=== PATIENT | male | born 1960 | race Caucasian/White ===

== ENCOUNTER 2018-06-03 11:13 | Inpatient (IN) | payer SELFPAY ==
--- NOTE | 2018-06-03 11:23 | ED PDOC ---
Arrival/HPI - General Chief Complaint: Chest Pain Time Seen by Provider: 06/03/18 11:19 - History of Present Illness Narrative History of Present Illness (Text): 06/03/18 11:25 A 57 year old male, whose past medical history includes atrial fibrillation, hy pertension and diabetes type 2, presents to the emergency department complaining of central chest pain starting at 10:00. Patient describes pain as burning sensation. NKDA. No history of CVA. No other complaints at this time. code Heart called since patient arrival. No PMD Past Medical History - Provider Review Nursing Documentation Reviewed: Yes - Infectious Disease Hx of Infectious Diseases: None - Tetanus Immunization Tetanus Immunization: Unknown - Cardiac Hx Atrial Fibrillation: Yes Hx Hypertension: Yes - Endocrine/Metabolic Hx Diabetes Mellitus Type 2: Yes - Musculoskeletal/Rheumatological Hx Falls: No Hx Gout: Yes - Psychiatric Hx Substance Use: No - Past Surgical History Past Surgical History: No Previous - Suicidal Assessment Feels Threatened In Home Enviroment: No Family/Social History - Physician Review Nursing Documentation Reviewed: Yes Family/Social History: No Known Family HX Smoking Status: Current Some Days Smoker Hx Alcohol Use: No Hx Substance Use: No Hx Substance Use Treatment: No Allergies/Home Meds Allergies/Adverse Reactions: Allergies No Known Allergies Allergy (Verified 06/03/18 12:13) Home Medications: Home Meds Medication Instructions Recorded Confirmed RX: Allopurinol 300 mg PO DAILY 04/23/12 06/03/18 RX: Metoprolol Tartrate 50 mg PO DAILY 04/23/12 06/03/18 RX: metFORMIN [glucOPHAGE] 500 mg PO BID 06/03/18 06/03/18 Review of Systems - Physician Review All systems were reviewed & negative as marked: Yes - Review of Systems Cardiovascular: Chest Pain (burning sensation) Physical Exam - Physical Exam Narrative Physical Exam (Text): Gen: VS reviewed, alert, well developed, well nourished, nontoxic, mild distress. ENT: normal pharynx. Eye: EOMI, PERRL. Neck: no JVD, supple, no adenopathy. CV: regular rate, regular rhythm, no rubs, no murmur, no gallops, S1, S2, pulses equal and strong. Pulm: no distress, clear to auscultation, no wheeze, no rhonchi, breath sounds equal, no rales. Abd: soft, nontender, no guarding, no rebound, no rigidity, normal bowel sounds. Ext: no edema. Skin: good color, no rash, no cyanosis. Psych: responds appropriately to questions, normal affect. Neuro: oriented x 3, CN2-12 intact grossly, motor intact, sensation intact. Vital Signs Temp Pulse Resp BP Pulse Ox 06/03/18 11:13 97.5 F L 57 L 19 142/55 L 98 Medical Decision Making ED Course and Treatment: 06/03/18 11:26 Impression: 57 year old male with burning chest pain. Plan: -- EKG -- Labs -- Chest X-ray -- Nasal Cannula -- Aspirin -- Plavix -- Reassess and disposition Progress Notes: 06/03/18 11:[address] Delacruz, will accept patient to the cardiac pharmaceutical laboratory technician for acute mi 06/03/18 11:[address] Comer for admission to the hospitalist service. patient to be admitted for acute mi, will need cardiac intervention. 06/03/18 11:32 06/03/18 11:33 at this time am awaiting confirmation of cardiac cath team in house for intervention 06/03/18 11:57 patient left the department to go to the pharmaceutical laboratory technician - Critical Care Critical Care Minutes: 30 minutes - EKG Interpretation EKG Interpretation (Text): 06/03/18 11:34 1119: sinus gino at 59 bpm, nml qrs, st elevations in inferior leads with anterior reciprocal changes Interpreted by ED Physician: Yes - Scribe Statement The provider has reviewed the documentation as recorded by the Asha Orellana Provider Scribe Attestation: All medical record entries made by the Asha were at my direction and personally dictated by me. I have reviewed the chart and agree that the record accurately reflects my personal performance of the history, physical exam, medical decision making, and the department course for this patient. I have also personally directed, reviewed, and agree with the discharge instructions and disposition. Disposition/Present on Arrival - Present on Arrival Any Indicators Present on Arrival: No History of DVT/PE: No History of Uncontrolled Diabetes: No Urinary Catheter: No History of Decub. Ulcer: No History Surgical Site Infection Following: None - Disposition Have Diagnosis and Disposition been Completed?: Yes Diagnosis: Acute myocardial infarction Disposition: HOSPITALIZED Disposition Time: 17:53 Patient Plan: Discharge Condition: STABLE
[2018-06-03] MEDS ORDERED: Eptifibatide 0.75 mg/ml 75 MG/100 ML BOTTLE IV ONE (11:29)
[2018-06-03] MEDS ORDERED: Eptifibatide 20 mg/10mL Inj IVP ONE (11:30)
[2018-06-03] MEDS: Eptifibatide 20 mg/10mL Inj IVP ONE (11:32)
[2018-06-03] MEDS ORDERED: Eptifibatide 20 mg/10mL Inj IVP STA (11:32)
[2018-06-03 11:40] LABS: INR 1.14; PROTHROMBIN TIME 12.9 SECONDS (9.4-12.5)
[2018-06-03 11:41] LABS: ALB/GLOB RATIO 1.2 (1.1-1.8); ALBUMIN 4.2 g/dL (3.0-4.8); ALT/SGPT 19 U/L (7-56); AST/SGOT 27 U/L (17-59); BLOOD UREA NITROGEN 18 mg/dL (7-21); CALCIUM 9.3 mg/dL (8.4-10.5); GFR NON-AFRICAN AMERICAN > 60
[2018-06-03] MEDS: Eptifibatide 20 mg/10mL Inj IVP STA (11:42)
[2018-06-03] MEDS ORDERED: Phenylephrine 10 mg/ml Inj ONE (11:45)
[2018-06-03] MEDS ORDERED: Lidocaine 2% Inj (20ml) ONE (11:45)
[2018-06-03] MEDS ORDERED: Iodixanol 320 MG/ML 200 ML BOTTLE IV ONE (11:46)
[2018-06-03] MEDS ORDERED: Nitroglycerin 50mg in D5W 0 MG/0 ML BOTTLE IV ONE (11:46)
[2018-06-03] MEDS ORDERED: Iodixanol 320 MG/ML 100 ML BOTTLE IV ONE (11:46)
[2018-06-03] MEDS ORDERED: Iohexol 350mgl/ml 50 ML ONE (11:46)
[2018-06-03] MEDS ORDERED: Midazolam 2 MG/2 ML VIAL ONE ×2 (11:46→12:11)
[2018-06-03 11:49] LABS: BASO # 0.04 K/mm3 (0.0-2.0); BASO % 0.4 % (0.0-3.0); EOS # 0.3 (0.0-0.7); EOS % 2.7 % (1.5-5.0); HEMOGLOBIN 13.3 g/dL (14.0-18.0); LYMPH # 4.2 (1.2-3.4); LYMPH % 42.3 % (22.0-35.0); MEAN CELL VOLUME 69.4 fl (80.0-105.0); MEAN CORPUSCULAR HEMOGLOBIN 22.1 pg (25.0-35.0); MEAN CORPUSCULAR HGB CONC 31.8 g/dl (31.0-37.0); MONO # 0.5 (0.1-0.6); MONO % 4.7 % (1.0-6.0); PLATELET COUNT 278 10^3/uL (120.0-450.0); RBC 6.02 10^6/uL (3.5-6.1); RED CELL DISTRIBUTION WIDTH 14.3 % (11.5-14.5); WHITE BLOOD COUNT 9.8 10^3/uL (4.5-11.0)
[2018-06-03 11:52] LABS: TROPONIN I 0.03 ng/mL
--- NOTE | 2018-06-03 13:30 | RAD ---
Date of service: 06/03/2018 HISTORY: chest pain COMPARISON: Comparison made with chest radiograph 04/23/2012 FINDINGS: LUNGS: Central pulmonary vasculature is slightly increased which may be due to slightly low lung volumes and semi-erect patient positioning. There also appears to be mild bibasilar atelectasis. PLEURA: No significant pleural effusion identified, no pneumothorax apparent. CARDIOVASCULAR: Mild aortic atherosclerotic calcification present. Heart appears enlarged. OSSEOUS STRUCTURES: No significant abnormalities. VISUALIZED UPPER ABDOMEN: Normal. OTHER FINDINGS: None. IMPRESSION: Central pulmonary vasculature is slightly increased which may be due to slightly low lung volumes and semi-erect patient positioning. There also appears to be mild bibasilar atelectasis.
[2018-06-03] MEDS: Sodium Chloride 0.9% 1,000 ML IV SCH ×2 (13:45→17:39)
[2018-06-03] MEDS: Eptifibatide 0.75 mg/ml 75 MG/100 ML BOTTLE IV SCH ×2 (13:45→17:41)
[2018-06-03 14:13] LABS: IRON 116 ug/dL (45-180)
[2018-06-03 14:22] LABS: % IRON SATURATION 40 % (20-55); TOTAL IRON BINDING CAPACITY 287 ug/dL (261-462)
[2018-06-03 15:59] LABS: PH,URINE 7.5 (4.7-8.0); URINE BILIRUBIN NEGATIVE (NEGATIVE); URINE BLOOD SMALL (NEGATIVE); URINE GLUCOSE (UA) NEGATIVE (NEGATIVE); URINE LEUKOCYTE ESTERASE NEGATIVE Leu/uL (NEGATIVE); URINE PROTEIN NEGATIVE mg/dL (<30 mg/dL); URINE UROBILINOGEN 0.2 E.U./dL (<1 E.U./dL)
[2018-06-03 16:00] LABS: URINE APPEARANCE SL CLOUDY (CLEAR); URINE COLOR YELLOW (YELLOW)
[2018-06-03 16:11] LABS: URINE BACTERIA FEW /hpf
--- NOTE | 2018-06-03 16:41 | CP.PCM.HP ---
<Shaneka Harmon - Last Filed: 06/03/18 16:08> History of Present Illness - History of Present Illness History of Present Illness: Shaneka Harmon, PGY2, H&P for Dr Johnson: CC: chest pain This is a 57 year old male, with PMH atrial fibrillation, HTN, type 2 DM, presents to ED for substernal chest pain that started at 10 AM this morning. at bedside, most HPI obtained from as patient was being wheeled in to the cardiac catheterization suite, and prior chart records. As per , patient was sleeping when the chest pain began and he described it as "flaming hot." Patient works in maintenance, and has been feeling short of breath recently while exerting himself. reports that patient stopped taking ASA 10 years ago because he had mild blood in his stools. However, reports that he currently does not have melena, hematochezia. As per patient, he did have some diaphoresis at the time of his chest pain. However, he denies nausea, vomiting, palpitations, abdominal pain, radiation of his pain, dysuria, leg swelling, diarrhea. Denies prior stress test, cardiac cath. In ED, EKG showed sinus bradycardia 59, ST elevations in inferior leads. Code heart called, patient wheeled into cardiac cath for STEMI. Given ASA 325 mg, plavix 600, integrillin bolus 15 mg IVPx2. ROS limited due to emergent cath procedure. PMD: Dr Buck (FABI) PMH: HTN, arrhythmia (afib?), TIA, gout PSH: denies All: NKA FH: father, CVA Brother, CAD with stent (age 53) States that cardiac history runs in his family FH: smokes 7 ciggs/day for past 30 years. Quit drinking many months ago, previously used to drink hard liquor. No recreational drug use. Lives with . Meds: Metformin 500 mg, metoprolol Pharmacy: [facility] in [place] Present on Admission - Present on Admission Any Indicators Present on Admission: No History of DVT/PE: No History of Uncontrolled Diabetes: No Urinary Catheter: No Decubitus Ulcer Present: No Review of Systems - Review of Systems Systems not reviewed;Unavailable: Acuity of Condition Past Patient History - Infectious Disease Hx of Infectious Diseases: None - Tetanus Immunizations Tetanus Immunization: Unknown - Past Social History Smoking Status: Current Some Days Smoker - CARDIAC Hx Atrial Fibrillation: Yes Hx Hypertension: Yes - ENDOCRINE/METABOLIC Hx Diabetes Mellitus Type 2: Yes - MUSCULOSKELETAL/RHEUMATOLOGICAL Hx Falls: No Hx Gout: Yes - PSYCHIATRIC Hx Substance Use: No Meds Allergies/Adverse Reactions: Allergies Allergy/AdvReac Type Severity Reaction Status Date / Time No Known Allergies Allergy Verified 06/03/18 12:13 Physical Exam - Constitutional Appears: Non-toxic, No Acute Distress - Head Exam Head Exam: ATRAUMATIC, NORMOCEPHALIC - Eye Exam Eye Exam: EOMI, PERRL. absent: Conjunctival injection, Nystagmus, Scleral icterus Pupil Exam: NORMAL ACCOMODATION, PERRL. absent: Irregular, Miosis, Unequal - ENT Exam ENT Exam: Mucous Membranes Moist - Neck Exam Neck exam: Positive for: Full Rom - Respiratory Exam Respiratory Exam: Clear to Auscultation Bilateral, NORMAL BREATHING PATTERN. absent: Accessory Muscle Use, Rhonchi, Wheezes, Stridor - Cardiovascular Exam Cardiovascular Exam: Bradycardia, +S1, +S2. absent: Systolic Murmur - GI/Abdominal Exam GI & Abdominal Exam: Normal Bowel Sounds, Soft. absent: Distended, Firm, Guarding, Pulsatile Mass, Rebound, Rigid, Tenderness - Extremities Exam Extremities exam: Positive for: normal inspection. Negative for: calf tenderness, pedal edema - Back Exam Back exam: NORMAL INSPECTION. absent: CVA tenderness (L), CVA tenderness (R) - Neurological Exam Neurological exam: Alert, Oriented x3 - Psychiatric Exam Psychiatric exam: Normal Affect, Normal Mood - Skin Skin Exam: Dry, Normal Color, Warm Results - Vital Signs Recent Vital Signs: Last Vital Signs Temp 97.5 F L 06/03/18 11:13 Pulse 60 06/03/18 11:50 Resp 20 06/03/18 11:50 BP 146/75 06/03/18 11:50 Pulse Ox 99 06/03/18 11:53 - Labs Result Diagrams: 06/03/18 11:21 06/03/18 11:21 Labs: Laboratory Results - last 24 hr 06/03/18 06/03/18 06/03/18 11:21 11:21 11:21 WBC 9.8 RBC 6.02 Hgb 13.3 L Hct 41.8 L MCV 69.4 L MCH 22.1 L MCHC 31.8 RDW 14.3 Plt Count 278 Neut % (Auto) 49.9 L Lymph % (Auto) 42.3 H [place] % (Auto) 4.7 Eos % (Auto) 2.7 Baso % (Auto) 0.4 Lymph # (Auto) 4.2 H [place] # (Auto) 0.5 Eos # (Auto) 0.3 Baso # (Auto) 0.04 Absolute Neuts (auto) 4.90 PT 12.9 H INR 1.14 Sodium 140 Potassium 3.7 Chloride 103 Carbon Dioxide 28 Anion Gap 13 BUN 18 Creatinine 1.0 Est GFR ( Amer) > 60 Est GFR (Non-Af Amer) > 60 POC Glucose (mg/dL) Random Glucose 123 H Calcium 9.3 Iron TIBC % Saturation Total Bilirubin 0.5 AST 27 ALT 19 Alkaline Phosphatase 59 Lactate Dehydrogenase 395 Total Creatine Kinase 140 Troponin I 0.03 Total Protein 7.8 Albumin 4.2 Globulin 3.6 Albumin/Globulin Ratio 1.2 Urine Color Urine Appearance Urine pH Ur Specific Lee Urine Protein Urine Glucose (UA) Urine Ketones Urine Blood Urine Nitrate Urine Bilirubin Urine Urobilinogen Ur Leukocyte Esterase 06/03/18 06/03/18 06/03/18 14:01 14:01 15:24 WBC RBC Hgb Hct MCV MCH MCHC RDW Plt Count Neut % (Auto) Lymph % (Auto) [place] % (Auto) Eos % (Auto) Baso % (Auto) Lymph # (Auto) [place] # (Auto) Eos # (Auto) Baso # (Auto) Absolute Neuts (auto) PT INR Sodium Potassium Chloride Carbon Dioxide Anion Gap BUN Creatinine Est GFR ( Amer) Est GFR (Non-Af Amer) POC Glucose (mg/dL) 148 H Random Glucose Calcium Iron 116 TIBC 287 % Saturation 40 Total Bilirubin AST ALT Alkaline Phosphatase Lactate Dehydrogenase Total Creatine Kinase Troponin I Total Protein Albumin Globulin Albumin/Globulin Ratio Urine Color Yellow Urine Appearance Sl cloudy Urine pH 7.5 Ur Specific Lee 1.010 Urine Protein Negative Urine Glucose (UA) Negative Urine Ketones Negative Urine Blood Small H Urine Nitrate Negative Urine Bilirubin Negative Urine Urobilinogen 0.2 Ur Leukocyte Esterase Negative Assessment & Plan - Assessment and Plan (Free Text) Assessment: This is a 57 year old male with PMH HTN, DM2, TIA?, atrial fibrillation? (arrhythmia), presents for chest pain, found to be STEMI: STEMI: - initial troponin 0.03 - EKG showed sinus gino at 59 bpm, nml qrs, st elevations in inferior leads (ii, iii, AVF) with anterior reciprocal changes - received ASA 325 mg, plavix 600 mg, integrillin bolus 15 mg IV x2 in ED - Code heart called. Went for emergent cath with Dr Delacruz. - Will follow up cathetherization results. - Post cath, patient is in ICU. - Cardiology on board. appreciate recs. - started on integrillin drip - on ASA 81 mg, plavix 75 mg, lipitor 40 mg, metoprolol tartrate 25 bid - NS @ 100 - f.u lipid panel, hgbA1c - monitor in ICU Mild Anemia: - Hgb 11.3, MCV 69.4 - f/u iron studies, lead level, retic count - monitor Hx of chronic afib?: - patient takes metoprolol at home, resumed as per Cardio - [id number] score 4, will discuss about anticoagulation with patient, Cardio - patient reports that he was on Aspirin 81 mg 10 years ago, but he stopped taking as he was having mild blood in his stool - monitor on tele Hx of gout: - denies home meds - uric acid level Hx of DM: - A1c - ISS - BG ACHS PPX: protonix, integrillin drip, SCDs Case seen and discussed with Dr Johnson. <Sindhu Johnson - Last Filed: 06/04/18 07:14> Results - Vital Signs Recent Vital Signs: Last Vital Signs Temp 98.2 F 06/04/18 04:00 Pulse 55 L 06/04/18 06:30 Resp 24 06/04/18 06:15 BP 134/76 06/04/18 06:00 Pulse Ox 91 L 06/04/18 06:30 - Labs Result Diagrams: 06/03/18 11:21 06/04/18 06:00 Labs: Laboratory Results - last 24 hr 06/03/18 06/03/18 06/03/18 11:21 11:21 11:21 WBC 9.8 RBC 6.02 Hgb 13.3 L Hct 41.8 L MCV 69.4 L MCH 22.1 L MCHC 31.8 RDW 14.3 Plt Count 278 Neut % (Auto) 49.9 L Lymph % (Auto) 42.3 H [place] % (Auto) 4.7 Eos % (Auto) 2.7 Baso % (Auto) 0.4 Lymph # (Auto) 4.2 H [place] # (Auto) 0.5 Eos # (Auto) 0.3 Baso # (Auto) 0.04 Absolute Neuts (auto) 4.90 Retic Count PT 12.9 H INR 1.14 Sodium 140 Potassium 3.7 Chloride 103 Carbon Dioxide 28 Anion Gap 13 BUN 18 Creatinine 1.0 Est GFR ( Amer) > 60 Est GFR (Non-Af Amer) > 60 POC Glucose (mg/dL) Random Glucose 123 H Uric Acid Calcium 9.3 Phosphorus Magnesium Iron TIBC % Saturation Ferritin Total Bilirubin 0.5 AST 27 ALT 19 Alkaline Phosphatase 59 Lactate Dehydrogenase 395 Total Creatine Kinase 140 Troponin I 0.03 Total Protein 7.8 Albumin 4.2 Globulin 3.6 Albumin/Globulin Ratio 1.2 Triglycerides Cholesterol LDL Cholesterol Direct HDL Cholesterol Urine Color Urine Appearance Urine pH Ur Specific Lee Urine Protein Urine Glucose (UA) Urine Ketones Urine Blood Urine Nitrate Urine Bilirubin Urine Urobilinogen Ur Leukocyte Esterase Urine RBC Urine WBC Ur Epithelial Cells Urine Bacteria 06/03/18 06/03/18 06/03/18 14:01 14:01 14:01 WBC RBC Hgb Hct MCV MCH MCHC RDW Plt Count Neut % (Auto) Lymph % (Auto) [place] % (Auto) Eos % (Auto) Baso % (Auto) Lymph # (Auto) [place] # (Auto) Eos # (Auto) Baso # (Auto) Absolute Neuts (auto) Retic Count PT INR Sodium Potassium Chloride Carbon Dioxide Anion Gap BUN Creatinine Est GFR ( Amer) Est GFR (Non-Af Amer) POC Glucose (mg/dL) 148 H Random Glucose Uric Acid Calcium Phosphorus Magnesium Iron 116 TIBC 287 % Saturation 40 Ferritin 86.5 Total Bilirubin AST ALT Alkaline Phosphatase Lactate Dehydrogenase Total Creatine Kinase Troponin I Total Protein Albumin Globulin Albumin/Globulin Ratio Triglycerides Cholesterol LDL Cholesterol Direct HDL Cholesterol Urine Color Urine Appearance Urine pH Ur Specific Lee Urine Protein Urine Glucose (UA) Urine Ketones Urine Blood Urine Nitrate Urine Bilirubin Urine Urobilinogen Ur Leukocyte Esterase Urine RBC Urine WBC Ur Epithelial Cells Urine Bacteria 06/03/18 06/03/18 06/03/18 15:24 16:11 16:24 WBC RBC Hgb Hct MCV MCH MCHC RDW Plt Count Neut % (Auto) Lymph % (Auto) [place] % (Auto) Eos % (Auto) Baso % (Auto) Lymph # (Auto) [place] # (Auto) Eos # (Auto) Baso # (Auto) Absolute Neuts (auto) Retic Count 1.18 PT INR Sodium Potassium Chloride Carbon Dioxide Anion Gap BUN Creatinine Est GFR ( Amer) Est GFR (Non-Af Amer) POC Glucose (mg/dL) 146 H Random Glucose Uric Acid Calcium Phosphorus Magnesium Iron TIBC % Saturation Ferritin Total Bilirubin AST ALT Alkaline Phosphatase Lactate Dehydrogenase Total Creatine Kinase Troponin I Total Protein Albumin Globulin Albumin/Globulin Ratio Triglycerides Cholesterol LDL Cholesterol Direct HDL Cholesterol Urine Color Yellow Urine Appearance Sl cloudy Urine pH 7.5 Ur Specific Lee 1.010 Urine Protein Negative Urine Glucose (UA) Negative Urine Ketones Negative Urine Blood Small H Urine Nitrate Negative Urine Bilirubin Negative Urine Urobilinogen 0.2 Ur Leukocyte Esterase Negative Urine RBC 1 - 3 H Urine WBC 2 - 5 Ur Epithelial Cells 1 - 3 Urine Bacteria Few 06/03/18 06/03/18 06/04/18 16:47 21:53 06:00 WBC RBC Hgb Hct MCV MCH MCHC RDW Plt Count Neut % (Auto) Lymph % (Auto) [place] % (Auto) Eos % (Auto) Baso % (Auto) Lymph # (Auto) [place] # (Auto) Eos # (Auto) Baso # (Auto) Absolute Neuts (auto) Retic Count PT INR Sodium 139 Potassium 3.9 Chloride 106 Carbon Dioxide 28 Anion Gap 9 L BUN 11 Creatinine 0.9 Est GFR ( Amer) > 60 Est GFR (Non-Af Amer) > 60 POC Glucose (mg/dL) 136 H Random Glucose 119 H Uric Acid 7.3 Calcium 8.5 Phosphorus 2.7 Magnesium 1.7 Iron TIBC % Saturation Ferritin Total Bilirubin 0.6 AST 308 H D ALT 41 Alkaline Phosphatase 56 Lactate Dehydrogenase Total Creatine Kinase Troponin I Total Protein 6.8 Albumin 3.5 Globulin 3.3 Albumin/Globulin Ratio 1.1 Triglycerides 104 Cholesterol 127 L LDL Cholesterol Direct 94 HDL Cholesterol 22 L Urine Color Urine Appearance Urine pH Ur Specific Lee Urine Protein Urine Glucose (UA) Urine Ketones Urine Blood Urine Nitrate Urine Bilirubin Urine Urobilinogen Ur Leukocyte Esterase Urine RBC Urine WBC Ur Epithelial Cells Urine Bacteria Attending/Attestation - Attestation I have personally seen and examined this patient.: Yes I have fully participated in the care of the patient.: Yes I have reviewed all pertinent clinical information: Yes Notes (Text): 06/03/18 57 year old male with past medical history of hypertension, diabetes, ?dysrhythmia, ?TIA and active smoker who presented with STEMI. He was seen by cardiology and is s/p cath with RCA VENANCIO stent placement. Continue with aspirin, plavix, statin and metoprolol. Echocardiogram is ordered. He was counselled on smoking cessation. Anemia workup ordered for microcytic anemia. Continue with insulin ss for diabetes. Sindhu Johnson MD Hospitalist.
--- NOTE | 2018-06-03 17:00 | CARDCATH ---
PROCEDURE DATE: 06/03/2018 HISTORY: The patient is a 57-year-old male who began experiencing substernal burning some time after breakfast. Because of his ongoing symptoms associated with diaphoresis, the patient came to the emergency room. In the emergency room, he was found to have an acute inferior wall SC. There were no contraindications to cardiac catheterization with no history of bleeding. The patient was started on intravenous Integrilin as well as Plavix and aspirin in the ER and brought up to the oven laborer. PROCEDURE: Emergency cardiac catheterization followed by PTCA and stent of an occluded RCA. The patient was pretreated with intravenous Integrilin. I performed moderate sedation which included the presence of an independent trained observer that assisted in monitoring the patient's level of consciousness and physiologic status. After administration of Versed and fentanyl, intra-service time was 1 hour. Findings on catheterization revealed a right dominant circulation. The RCA was occluded in its proximal portion. The left main artery was unremarkable. The LAD and diagonal vessels revealed diffuse atherosclerosis without a discrete critical lesion. The circumflex artery and obtuse marginal branch of the small vessel was free of critical lesions. LV function after the procedure revealed preserved LV function. The patient was given 5000 units of intravenous heparin, which resulted in ACT that was supratherapeutic. Under fluoroscopic guide, the guider was placed in the ostium of the RCA and 0.014 ATW wire was used to cross the total occlusion. A 2.0 balloon was utilized to predilate the lesion. This was followed by implantation of a 4.0 x 15 mm drug-eluting stent which was placed at 14 atmospheres of pressure. Repeat coronary arteriography revealed an excellent result with no residual stenoses and JARVIS-III flow down the large RCA which provided perfusion to the posterior wall as well. Angio-Seal was used to close the femoral artery site. The patient tolerated the procedure well. In summary, the procedure was an emergency PTCA and stent of an occluded RCA. A drug-eluting stent was utilized to obtain reperfusion Cardiac catheterization revealed single-vessel CAD with diffuse atherosclerosis of his coronary tree. LV is preserved. Given these findings, the patient will need to remain on aspirin and Plavix with Plavix for least a year. He will remain on IV Integrilin for 18 hours. Davon Delacruz MD [facility] # [id number]
--- NOTE | 2018-06-03 17:27 | CP.PCM.CON ---
<Ivette Brenner - Last Filed: 06/03/18 17:13> History of Present Illness - History of Present Illness History of Present Illness: Ivette Brenner, PGY-1, CCU Progress Note for Dr. Ruano 57 year old female with past medical history of diabetes mellitus type II, psoriasis, hypertension, TIA, gout, and hyperlipidemia presented with burning, intermittent left sided chest pain at 10:30 this morning. 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 Pain exacerbated by movement and relieved with deep breaths. Patient also reports increased sweating and shortness of breath with the pain. Patient denies nausea, vomiting, jaw pain, left arm pain, abdominal pain, back pain, constipation, diarrhea, headache, dizziness, dysuria, hematuria. 12-point ROS was unremarkable except for what was mentioned above. As per prior note, patient took aspirin 10 years ago but stopped due to bloody stools. Patient has not had a prior stress test, cardiac catherization, or echocardiogram. In ED, patient's EKG showed sinus bradycardia with HR of 59. ST elevations were present in the inferior leads. Code heart was called and patient was taken for cardiac catherization by Dr. Delacruz. Patient was given aspirin 325, plavix 600, and integrillin bolus 15 mg IVPx2. PMH: as stated above PSH: denies FMHx: Father had CVA SHx: smoked 7 cigarettes daily for 30 years. Patient denied history of drinking. Patient denies recreational drug use Allergies: NKDA PMD: Dr. Buck Review of Systems - Review of Systems Review of Systems: except as mentioned in HPI Past Patient History - Infectious Disease Hx of Infectious Diseases: None - Tetanus Immunizations Tetanus Immunization: Unknown - Past Social History Smoking Status: Current Some Days Smoker - CARDIAC Hx Atrial Fibrillation: Yes Hx Hypertension: Yes - ENDOCRINE/METABOLIC Hx Diabetes Mellitus Type 2: Yes - MUSCULOSKELETAL/RHEUMATOLOGICAL Hx Falls: No Hx Gout: Yes - PSYCHIATRIC Hx Substance Use: No Meds Allergies/Adverse Reactions: Allergies Allergy/AdvReac Type Severity Reaction Status Date / Time No Known Allergies Allergy Verified 06/03/18 12:13 - Medications Medications: Current Medications Aspirin (Aspirin Chewable) 81 mg PO DAILY ELISA Atorvastatin Calcium (Lipitor) 40 mg PO DIN ELISA Clopidogrel Bisulfate (Plavix) 75 mg PO DAILY [facility] Sodium Chloride (Sodium Chloride 0.9%) 1,000 mls @ 100 mls/hr IV .Q10H ELISA Stop: 06/03/18 22:00 Last Admin: 06/03/18 13:45 Dose: 100 mls/hr Eptifibatide (Integrilin) 75 mg in 100 mls @ 13.18 mls/hr IV .Q7H36M [facility]; Protocol Stop: 06/04/18 05:40 Last Admin: 06/03/18 13:45 Dose: 13.18 mls/hr Insulin Human Lispro (Humalog Med) 0 units SC ACHS [facility]; Protocol Metoprolol Tartrate (Lopressor) 25 mg PO BID [facility] Nicotine (Nicoderm Cq) 1 patch TD DAILY [facility] Physical Exam - Constitutional Appears: Well, Non-toxic, No Acute Distress - Head Exam Head Exam: ATRAUMATIC, NORMAL INSPECTION, NORMOCEPHALIC - Eye Exam Eye Exam: EOMI, PERRL - ENT Exam ENT Exam: Mucous Membranes Moist - Respiratory Exam Respiratory Exam: Clear to Auscultation Bilateral, NORMAL BREATHING PATTERN - Cardiovascular Exam Cardiovascular Exam: REGULAR RHYTHM, RRR - GI/Abdominal Exam GI & Abdominal Exam: Normal Bowel Sounds, Soft. absent: Tenderness - Extremities Exam Extremities exam: Positive for: full ROM, normal inspection - Back Exam Back exam: NORMAL INSPECTION - Neurological Exam Neurological exam: Alert, CN II-XII Intact, Oriented x3 - Skin Skin Exam: Dry, Intact, Normal Color Results - Vital Signs Recent Vital Signs: Last Vital Signs Temp 97.5 F L 06/03/18 11:13 Pulse 60 06/03/18 11:50 Resp 20 06/03/18 11:50 BP 146/75 06/03/18 11:50 Pulse Ox 99 06/03/18 11:53 - Labs Result Diagrams: 06/03/18 11:21 06/03/18 11:21 Labs: Laboratory Results - last 24 hr 06/03/18 06/03/18 06/03/18 11:21 11:21 11:21 WBC 9.8 RBC 6.02 Hgb 13.3 L Hct 41.8 L MCV 69.4 L MCH 22.1 L MCHC 31.8 RDW 14.3 Plt Count 278 Neut % (Auto) 49.9 L Lymph % (Auto) 42.3 H [place] % (Auto) 4.7 Eos % (Auto) 2.7 Baso % (Auto) 0.4 Lymph # (Auto) 4.2 H [place] # (Auto) 0.5 Eos # (Auto) 0.3 Baso # (Auto) 0.04 Absolute Neuts (auto) 4.90 Retic Count PT 12.9 H INR 1.14 Sodium 140 Potassium 3.7 Chloride 103 Carbon Dioxide 28 Anion Gap 13 BUN 18 Creatinine 1.0 Est GFR ( Amer) > 60 Est GFR (Non-Af Amer) > 60 POC Glucose (mg/dL) Random Glucose 123 H Uric Acid Calcium 9.3 Iron TIBC % Saturation Total Bilirubin 0.5 AST 27 ALT 19 Alkaline Phosphatase 59 Lactate Dehydrogenase 395 Total Creatine Kinase 140 Troponin I 0.03 Total Protein 7.8 Albumin 4.2 Globulin 3.6 Albumin/Globulin Ratio 1.2 Urine Color Urine Appearance Urine pH Ur Specific [place] Urine Protein Urine Glucose (UA) Urine Ketones Urine Blood Urine Nitrate Urine Bilirubin Urine Urobilinogen Ur Leukocyte Esterase Urine RBC Urine WBC Ur Epithelial Cells Urine Bacteria 06/03/18 06/03/18 06/03/18 14:01 14:01 15:24 WBC RBC Hgb Hct MCV MCH MCHC RDW Plt Count Neut % (Auto) Lymph % (Auto) [place] % (Auto) Eos % (Auto) Baso % (Auto) Lymph # (Auto) [place] # (Auto) Eos # (Auto) Baso # (Auto) Absolute Neuts (auto) Retic Count PT INR Sodium Potassium Chloride Carbon Dioxide Anion Gap BUN Creatinine Est GFR ( Amer) Est GFR (Non-Af Amer) POC Glucose (mg/dL) 148 H Random Glucose Uric Acid Calcium Iron 116 TIBC 287 % Saturation 40 Total Bilirubin AST ALT Alkaline Phosphatase Lactate Dehydrogenase Total Creatine Kinase Troponin I Total Protein Albumin Globulin Albumin/Globulin Ratio Urine Color Yellow Urine Appearance Sl cloudy Urine pH 7.5 Ur Specific [place] 1.010 Urine Protein Negative Urine Glucose (UA) Negative Urine Ketones Negative Urine Blood Small H Urine Nitrate Negative Urine Bilirubin Negative Urine Urobilinogen 0.2 Ur Leukocyte Esterase Negative Urine RBC 1 - 3 H Urine WBC 2 - 5 Ur Epithelial Cells 1 - 3 Urine Bacteria Few 06/03/18 06/03/18 06/03/18 16:11 16:24 16:47 WBC RBC Hgb Hct MCV MCH MCHC RDW Plt Count Neut % (Auto) Lymph % (Auto) [place] % (Auto) Eos % (Auto) Baso % (Auto) Lymph # (Auto) [place] # (Auto) Eos # (Auto) Baso # (Auto) Absolute Neuts (auto) Retic Count 1.18 PT INR Sodium Potassium Chloride Carbon Dioxide Anion Gap BUN Creatinine Est GFR ( Amer) Est GFR (Non-Af Amer) POC Glucose (mg/dL) 146 H Random Glucose Uric Acid 7.3 Calcium Iron TIBC % Saturation Total Bilirubin AST ALT Alkaline Phosphatase Lactate Dehydrogenase Total Creatine Kinase Troponin I Total Protein Albumin Globulin Albumin/Globulin Ratio Urine Color Urine Appearance Urine pH Ur Specific [place] Urine Protein Urine Glucose (UA) Urine Ketones Urine Blood Urine Nitrate Urine Bilirubin Urine Urobilinogen Ur Leukocyte Esterase Urine RBC Urine WBC Ur Epithelial Cells Urine Bacteria Assessment & Plan - Assessment and Plan (Free Text) Assessment: 57 year old female with past medical history of diabetes mellitus type II, psoriasis, hypertension, TIA, gout, and hyperlipidemia presented with STEMI on 06/03 and was subsequently taken for cardiac catherization with RCA stent placed. Plan: Neuro: -AAOx3, no FND, moving extremities past midline. -Monitor neuro status. -Reorient patient as necessary. Cardio: STEMI -RRR, normotensive, no signs of HD compromise -EKG: sinus bradycardia with ST elevations in inferior leads with HR: 59 -Cardiac catherization today by Dr. Delacruz with 1 stent in proximal RCA. LAD and diagonal vessels also had diffuse atherosclerosis but had no discrete lesion. -Prior to catherization, patient was loaded with aspirin 325, plavix 600, and integrillin bolus 15 mg IVPx2 -Start aspirin 81, plavix 75, atorvastatin 40, epfibitide drip at 2 mcg/kg/min, lopressor 25 mg BID -NS at 100 cc/hr since patient is preload dependent. Avoid nitroglycerin. -Follow up echocardiogram and lipid panel -Maintain MAP>65. -Monitor for S/S, HD compromise. Pulm: -Maintain O2 saturation>90%. -O2 NC PRN -Head of bed to 30 degrees -Conservative fluid management -Maintain oral hygiene Tobacco Abuse -Nicotine patch ordered -Tobacco cessation counseling given for 10 minutes GI: Diet -Heart healthy diet GI prophylaxis -Protonix 40 mg daily /Nephro: -BUN/Cr stable -Good urine output -Continue monitoring. -Replete electrolytes as needed. -Maintain euvolemia. Endocrinology: Diabetes Mellitus Type II -Random glucose: 123 -Follow up hemoglobin A1c -Medium sliding scale insulin -Maintain euglycemia. Heme/Onc: -H/H stable at 13.3/41.8 -No signs of HD compromise. -Continue monitoring H/H DVT prophylaxis -SCD ID: -Afebrile, no leukocytosis -Follow up MRSA screen -Monitor for signs and symptoms of infection. Patient seen and examined with Dr. Ruano. - Date & Time Date: 06/03/18 Time: 17:28 <Ha Ruano - Last Filed: 06/03/18 17:54> Meds - Medications Medications: Current Medications Aspirin (Aspirin Chewable) 81 mg PO DAILY [facility] Atorvastatin Calcium (Lipitor) 40 mg PO DIN [facility] Last Admin: 06/03/18 17:38 Dose: 40 mg Clopidogrel Bisulfate (Plavix) 75 mg PO DAILY [facility] Sodium Chloride (Sodium Chloride 0.9%) 1,000 mls @ 100 mls/hr IV .Q10H [facility] Stop: 06/03/18 22:00 Last Admin: 06/03/18 17:39 Dose: 100 mls/hr Eptifibatide (Integrilin) 75 mg in 100 mls @ 13.18 mls/hr IV .Q7H36M [facility]; Protocol Stop: 06/04/18 05:40 Last Admin: 06/03/18 17:41 Dose: 13.18 mls/hr Insulin Human Lispro (Humalog Med) 0 units SC ACHS [facility]; Protocol Last Admin: 06/03/18 17:37 Dose: 1 units Metoprolol Tartrate (Lopressor) 25 mg PO BID [facility] Last Admin: 06/03/18 17:38 Dose: 25 mg Nicotine (Nicoderm Cq) 1 patch TD DAILY [facility] Results - Vital Signs Recent Vital Signs: Last Vital Signs Temp 97.5 F L 06/03/18 11:13 Pulse 68 06/03/18 17:38 Resp 20 06/03/18 11:50 BP 134/74 06/03/18 17:38 Pulse Ox 99 06/03/18 11:53 - Labs Result Diagrams: 06/03/18 11:21 06/03/18 11:21 Labs: Laboratory Results - last 24 hr 06/03/18 06/03/18 06/03/18 11:21 11:21 11:21 WBC 9.8 RBC 6.02 Hgb 13.3 L Hct 41.8 L MCV 69.4 L MCH 22.1 L MCHC 31.8 RDW 14.3 Plt Count 278 Neut % (Auto) 49.9 L Lymph % (Auto) 42.3 H [place] % (Auto) 4.7 Eos % (Auto) 2.7 Baso % (Auto) 0.4 Lymph # (Auto) 4.2 H [place] # (Auto) 0.5 Eos # (Auto) 0.3 Baso # (Auto) 0.04 Absolute Neuts (auto) 4.90 Retic Count PT 12.9 H INR 1.14 Sodium 140 Potassium 3.7 Chloride 103 Carbon Dioxide 28 Anion Gap 13 BUN 18 Creatinine 1.0 Est GFR ( Amer) > 60 Est GFR (Non-Af Amer) > 60 POC Glucose (mg/dL) Random Glucose 123 H Uric Acid Calcium 9.3 Iron TIBC % Saturation Total Bilirubin 0.5 AST 27 ALT 19 Alkaline Phosphatase 59 Lactate Dehydrogenase 395 Total Creatine Kinase 140 Troponin I 0.03 Total Protein 7.8 Albumin 4.2 Globulin 3.6 Albumin/Globulin Ratio 1.2 Urine Color Urine Appearance Urine pH Ur Specific [place] Urine Protein Urine Glucose (UA) Urine Ketones Urine Blood Urine Nitrate Urine Bilirubin Urine Urobilinogen Ur Leukocyte Esterase Urine RBC Urine WBC Ur Epithelial Cells Urine Bacteria 06/03/18 06/03/18 06/03/18 14:01 14:01 15:24 WBC RBC Hgb Hct MCV MCH MCHC RDW Plt Count Neut % (Auto) Lymph % (Auto) [place] % (Auto) Eos % (Auto) Baso % (Auto) Lymph # (Auto) [place] # (Auto) Eos # (Auto) Baso # (Auto) Absolute Neuts (auto) Retic Count PT INR Sodium Potassium Chloride Carbon Dioxide Anion Gap BUN Creatinine Est GFR ( Amer) Est GFR (Non-Af Amer) POC Glucose (mg/dL) 148 H Random Glucose Uric Acid Calcium Iron 116 TIBC 287 % Saturation 40 Total Bilirubin AST ALT Alkaline Phosphatase Lactate Dehydrogenase Total Creatine Kinase Troponin I Total Protein Albumin Globulin Albumin/Globulin Ratio Urine Color Yellow Urine Appearance Sl cloudy Urine pH 7.5 Ur Specific [place] 1.010 Urine Protein Negative Urine Glucose (UA) Negative Urine Ketones Negative Urine Blood Small H Urine Nitrate Negative Urine Bilirubin Negative Urine Urobilinogen 0.2 Ur Leukocyte Esterase Negative Urine RBC 1 - 3 H Urine WBC 2 - 5 Ur Epithelial Cells 1 - 3 Urine Bacteria Few 06/03/18 06/03/18 06/03/18 16:11 16:24 16:47 WBC RBC Hgb Hct MCV MCH MCHC RDW Plt Count Neut % (Auto) Lymph % (Auto) [place] % (Auto) Eos % (Auto) Baso % (Auto) Lymph # (Auto) [place] # (Auto) Eos # (Auto) Baso # (Auto) Absolute Neuts (auto) Retic Count 1.18 PT INR Sodium Potassium Chloride Carbon Dioxide Anion Gap BUN Creatinine Est GFR ( Amer) Est GFR (Non-Af Amer) POC Glucose (mg/dL) 146 H Random Glucose Uric Acid 7.3 Calcium Iron TIBC % Saturation Total Bilirubin AST ALT Alkaline Phosphatase Lactate Dehydrogenase Total Creatine Kinase Troponin I Total Protein Albumin Globulin Albumin/Globulin Ratio Urine Color Urine Appearance Urine pH Ur Specific [place] Urine Protein Urine Glucose (UA) Urine Ketones Urine Blood Urine Nitrate Urine Bilirubin Urine Urobilinogen Ur Leukocyte Esterase Urine RBC Urine WBC Ur Epithelial Cells Urine Bacteria Assessment & Plan - Assessment and Plan (Free Text) Plan: Patient seen and examined on rounds, with resident, agree with note with following additions/exceptions: Patient is 57yo male with PMHx DMII, psoriasis, hypertension, TIA, gout, and hyperlipidemia presented with STEMI, inferior wall VT. Taken to cardiac cath, RCA stent placed. Cardiology following Currently the patient is afebrile, BP stable, comfortable in NAD, groin site clean, distal pulses intact. ASA, Plavix, Statin, Integrillin drip x 18hr Heart healthy diet FS control Check HgbA1C, TSH, Lipid panel IVF GI ppx DVT ppx Monitor in MICU
[2018-06-03] MEDS: Insulin Lispro (humaLOG) MEDIUM Coverage SC SCH ×2 (17:37→21:55)
[2018-06-03 19:13] VITALS: BMI 28.4
[2018-06-03] MEDS ORDERED: Pneumococcal 23-Valent Vaccine IM ONE (19:13)
[2018-06-03] MEDS ORDERED: Influenza Vaccine 60 mcg/0.5 mL SYR (4YR UP) IM ONE (19:13)
--- NOTE | 2018-06-03 21:24 | CARD ---
APPROVED REPORT Date of service: 06/03/2018 EKG Measurement Heart [id number] <Conclusion> Sinus bradycardia ST elevation, consider inferior injury or acute infarct ACUTE IA Consider right ventricular involvement in acute inferior infarct Abnormal ECG
[2018-06-04] MEDS: Eptifibatide 0.75 mg/ml 75 MG/100 ML BOTTLE IV SCH (01:34)
[2018-06-04] MEDS ORDERED: Pantoprazole 20 mg EC Tab PO SCH (06:00)
[2018-06-04 06:51] LABS: ALB/GLOB RATIO 1.1 (1.1-1.8); ALBUMIN 3.5 g/dL (3.0-4.8); ALT/SGPT 41 U/L (7-56); AST/SGOT 308 U/L (17-59); BLOOD UREA NITROGEN 11 mg/dL (7-21); CALCIUM 8.5 mg/dL (8.4-10.5); GFR NON-AFRICAN AMERICAN > 60; HDL CHOLESTEROL 22 mg/dL (29-60)
[2018-06-04 07:01] LABS: BASO # 0.03 K/mm3 (0.0-2.0); BASO % 0.3 % (0.0-3.0); EOS # 0.2 (0.0-0.7); EOS % 1.5 % (1.5-5.0); HEMOGLOBIN 12.3 g/dL (14.0-18.0); LDL CHOLESTEROL 94 mg/dL (0-129); LYMPH # 1.6 (1.2-3.4); LYMPH % 14.4 % (22.0-35.0); MEAN CELL VOLUME 69.9 fl (80.0-105.0); MEAN CORPUSCULAR HEMOGLOBIN 21.9 pg (25.0-35.0); MEAN CORPUSCULAR HGB CONC 31.4 g/dl (31.0-37.0); MONO # 0.5 (0.1-0.6); MONO % 4.9 % (1.0-6.0); PLATELET COUNT 277 10^3/uL (120.0-450.0); RBC 5.61 10^6/uL (3.5-6.1); RED CELL DISTRIBUTION WIDTH 14.4 % (11.5-14.5); WHITE BLOOD COUNT 10.9 10^3/uL (4.5-11.0)
[2018-06-04] MEDS: Insulin Lispro (humaLOG) MEDIUM Coverage SC SCH ×4 (07:10→21:26)
--- NOTE | 2018-06-04 10:08 | PN ---
DATE: 06/04/2018 SUBJECTIVE: The patient is chest pain free. PHYSICAL EXAMINATION: VITAL SIGNS: Blood pressure is 134/76, heart rates in the 50s. NECK: Negative JVD. LUNGS: Without rales. HEART: S1, S2. EXTREMITIES: Without edema. The right groin site is stable. LABORATORY DATA: Hemoglobin is 12.5, platelet count is 277. Chemistries, BUN and creatinine unremarkable. The glucose is 119. IMPRESSION: 1. Status post acute anterior wall myocardial infarction. 2. Status post emergency percutaneous transluminal coronary angioplasty and stent. 3. Diabetes mellitus. 4. Chronic obstructive pulmonary disease. 5. Hypercholesterolemia. RECOMMENDATIONS: Given these findings, we will continue the patient's aspirin and Plavix. His Integrilin was discontinued. We will transfer the patient to telemetry today. Davon Delacruz MD
--- NOTE | 2018-06-04 10:26 | PN ---
DATE: 06/04/2018 CARDIOLOGY FOLLOWUP SUBJECTIVE: The patient is asymptomatic. No chest pain noted. PHYSICAL EXAMINATION: VITAL SIGNS: Blood pressure 134/76, heart rates in the 50s, sinus rhythm. NECK: Negative JVD. LUNGS: Without rales. HEART: S1, S2. EXTREMITIES: Without edema. The right groin site is stable. LABORATORY DATA: Platelet count is normal. BUN and creatinine unremarkable. IMPRESSION: 1. Status post acute inferior wall myocardial infarction. 2. Status post emergency percutaneous transluminal coronary angioplasty and stent of an occluded right coronary artery. 3. Chronic obstructive pulmonary disease. 4. Diabetes mellitus. 5. Hypercholesterolemia. Given these findings, the patient is doing well post procedure. He can be transferred to telemetry today. Davon Delacruz MD
--- NOTE | 2018-06-04 12:52 | CP.PCM.PN ---
<Zoran Chavez - Last Filed: 06/04/18 12:56> Subjective - Date & Time of Evaluation Date of Evaluation: 06/04/18 Time of Evaluation: 12:51 - Subjective Subjective: Internal Medicine Progress Note: Patient seen and assessed at bedside in the ICU. No acute events noted overnight. Patient denies any complaints and further ROS unremarkable at this time. Objective - Vital Signs/Intake and Output Vital Signs (last 24 hours): Temp Pulse Resp BP Pulse Ox 98.8 F 59 L 11 L 134/71 98 06/04/18 08:00 06/04/18 11:00 06/04/18 11:00 06/04/18 11:00 06/04/18 11:00 Intake and Output: 06/04/18 06/04/18 06:59 18:59 Intake Total 770 Output Total 1100 Balance -330 - Medications Medications: Current Medications Aspirin (Aspirin Chewable) 81 mg PO DAILY [facility] Last Admin: 06/04/18 09:39 Dose: 81 mg Atorvastatin Calcium (Lipitor) 40 mg PO DIN [facility] Last Admin: 06/03/18 17:38 Dose: 40 mg Clopidogrel Bisulfate (Plavix) 75 mg PO DAILY [facility] Last Admin: 06/04/18 09:39 Dose: 75 mg Insulin Human Lispro (Humalog Med) 0 units SC [facility]; Protocol Last Admin: 06/04/18 11:38 Dose: Not Given Metoprolol Tartrate (Lopressor) 25 mg PO BID [facility] Last Admin: 06/04/18 09:40 Dose: 25 mg Nicotine (Nicoderm Cq) 1 patch TD DAILY [facility] Last Admin: 06/04/18 09:40 Dose: 1 patch - Labs Labs: 06/04/18 06:00 06/04/18 06:00 PT 12.9 SECONDS (9.4-12.5) H 06/03/18 11:21 INR 1.14 06/03/18 11:21 - Constitutional Appears: Non-toxic, No Acute Distress - Head Exam Head Exam: ATRAUMATIC, NORMOCEPHALIC - Eye Exam Eye Exam: EOMI, Normal appearance, PERRL Pupil Exam: NORMAL ACCOMODATION, PERRL - ENT Exam ENT Exam: Mucous Membranes Moist - Neck Exam Neck Exam: Full ROM, Normal Inspection - Respiratory Exam Respiratory Exam: Clear to Ausculation Bilateral, NORMAL BREATHING PATTERN - Cardiovascular Exam Cardiovascular Exam: REGULAR RHYTHM, RRR, +S1, +S2 - GI/Abdominal Exam GI & Abdominal Exam: Soft, Normal Bowel Sounds. absent: Tenderness - Extremities Exam Extremities Exam: Full ROM, Normal Capillary Refill, Normal Inspection - Neurological Exam Neurological Exam: Alert, Awake, Oriented x3 - Psychiatric Exam Psychiatric exam: Normal Affect, Normal Mood - Skin Skin Exam: Dry, Warm Assessment and Plan - Assessment and Plan (Free Text) Assessment: 57 year old male with a past medical history significant for HTN, DM2, TIA, and unspecified cardiac arrhythmia who presented with ACS and is now s/p VENANCIO placement in the RCA. Plan: 1. STEMI s/p VENANCIO placement in RCA -s/p Integrillin gtt -Continue daily low dose ASA, Plavix, Statin, and Metoprolol -Continue supplemental oxygen as ordered via NC -2D Echocardiogram pending -Patient can be transferred to telemetry, per cardiology -Cardiology consulted, all recommendations appreciated 2. Microcytic Anemia -Chronic -Stable H/H -Iron studies/Reticulocyte count within normal limits -Lead studies pending -Continue to monitor with daily CBC's 3. History of DM2 -A1c: 6.5 -Continue SSI-M and Accuchecks ACHS -Heart Healthy/Moderate Carbohydrate Consistency Diet 4. History of Unspecified Cardiac Arrhythmia -[id number] Score: 4 -Continue Metoprolol and daily low dose ASA -Continue telemetry monitoring 5. History of Tobacco Use Disorder -Continue daily Nicotine TD patch -Cessation recommendations provided daily 6. History of Gout -Uric acid within normal limits GI Prophylaxis: Protonix DVT Prophyaxis: SCD's Patient seen and case discussed with attending, Dr. Johnson. Zoran Chavez PGY2 <Sindhu Johnson - Last Filed: 06/04/18 17:24> Objective - Vital Signs/Intake and Output Vital Signs (last 24 hours): Temp Pulse Resp BP Pulse Ox 97.9 F 59 L 20 148/72 96 06/04/18 16:00 06/04/18 16:00 06/04/18 16:00 06/04/18 16:00 06/04/18 16:00 Intake and Output: 06/04/18 06/04/18 06:59 18:59 Intake Total 770 360 Output Total 1100 800 Balance -330 -440 - Medications Medications: Current Medications Aspirin (Aspirin Chewable) 81 mg PO DAILY [facility] Last Admin: 06/04/18 09:39 Dose: 81 mg Atorvastatin Calcium (Lipitor) 40 mg PO DIN [facility] Last Admin: 06/03/18 17:38 Dose: 40 mg Clopidogrel Bisulfate (Plavix) 75 mg PO DAILY [facility] Last Admin: 06/04/18 09:39 Dose: 75 mg Insulin Human Lispro (Humalog Med) 0 units SC ACHS [facility]; Protocol Last Admin: 06/04/18 11:38 Dose: Not Given Metoprolol Tartrate (Lopressor) 25 mg PO BID [facility] Last Admin: 06/04/18 09:40 Dose: 25 mg Nicotine (Nicoderm Cq) 1 patch TD DAILY [facility] Last Admin: 06/04/18 09:40 Dose: 1 patch Pantoprazole Sodium (Protonix Ec Tab) 40 mg PO 0600 [facility] - Labs Labs: 06/04/18 06:00 06/04/18 06:00 PT 12.9 SECONDS (9.4-12.5) H 06/03/18 11:21 INR 1.14 06/03/18 11:21 Attending/Attestation - Attestation I have personally seen and examined this patient.: Yes I have fully participated in the care of the patient.: Yes I have reviewed all pertinent clinical information, including history, physical exam and plan: Yes Notes (Text): 06/04/18 17:23 57 year old male with past medical history of hypertension, diabetes, ?dysrhythmia, ?TIA and active smoker who presented with STEMI. He was seen by cardiology and is s/p cath with RCA VENANCIO stent placement. Continue with aspirin, plavix, statin and metoprolol. Echocardiogram is pending. He was counselled on smoking cessation. Anemia workup is in process for microcytic anemia. Continue with insulin ss for diabetes. A1c is 6.5. AST is elevated today; monitor closely while on statin. Transfer from ICU to telemetry unit today. Sindhu Johnson MD Hospitalist.
[2018-06-05 00:23] VITALS: RESP 20
[2018-06-05] MEDS ORDERED: Pantoprazole 40 mg EC Tab PO SCH (06:00)
[2018-06-05 06:18] VITALS: TEMP 98.7; O2SAT 100
--- NOTE | 2018-06-05 07:25 | CP.PCM.PN ---
Subjective - Date & Time of Evaluation Date of Evaluation: 06/05/18 Time of Evaluation: 07:22 - Subjective Subjective: Masood Florian DO, PGY-1 Hospitalist Progress Note for Dr. Molina Patient was seen and examined at bedside this AM. Objective - Vital Signs/Intake and Output Vital Signs (last 24 hours): Temp Pulse Resp BP Pulse Ox 98.7 F 61 20 127/73 100 06/05/18 06:00 06/05/18 06:00 06/05/18 06:00 06/05/18 06:00 06/05/18 06:00 Intake and Output: 06/05/18 06/05/18 06:59 18:59 Intake Total 600 Balance 600 - Medications Medications: Current Medications Aspirin (Aspirin Chewable) 81 mg PO DAILY [facility] Last Admin: 06/04/18 09:39 Dose: 81 mg Atorvastatin Calcium (Lipitor) 40 mg PO DIN [facility] Last Admin: 06/04/18 18:44 Dose: 40 mg Clopidogrel Bisulfate (Plavix) 75 mg PO DAILY [facility] Last Admin: 06/04/18 09:39 Dose: 75 mg Insulin Human Lispro (Humalog Med) 0 units SC [facility]; Protocol Last Admin: 06/04/18 21:26 Dose: Not Given Metoprolol Tartrate (Lopressor) 25 mg PO BID [facility] Last Admin: 06/04/18 18:44 Dose: 25 mg Nicotine (Nicoderm Cq) 1 patch TD DAILY [facility] Last Admin: 06/04/18 09:40 Dose: 1 patch Pantoprazole Sodium (Protonix Ec Tab) 40 mg PO 0600 [facility] Last Admin: 06/05/18 05:17 Dose: 40 mg - Labs Labs: 06/04/18 06:00 06/04/18 06:00 PT 12.9 SECONDS (9.4-12.5) H 06/03/18 11:21 INR 1.14 06/03/18 11:21
[2018-06-05 07:52] LABS: BASO # 0.04 K/mm3 (0.0-2.0); BASO % 0.4 % (0.0-3.0); EOS # 0.2 (0.0-0.7); EOS % 2.1 % (1.5-5.0); HEMOGLOBIN 12.4 g/dL (14.0-18.0); LYMPH # 1.5 (1.2-3.4); LYMPH % 14.7 % (22.0-35.0); MEAN CORPUSCULAR HEMOGLOBIN 21.8 pg (25.0-35.0); MEAN CORPUSCULAR HGB CONC 31.6 g/dl (31.0-37.0); MONO # 0.5 (0.1-0.6); MONO % 5.5 % (1.0-6.0); PLATELET COUNT 238 10^3/uL (120.0-450.0); RBC 5.68 10^6/uL (3.5-6.1); RED CELL DISTRIBUTION WIDTH 14.5 % (11.5-14.5); WHITE BLOOD COUNT 9.8 10^3/uL (4.5-11.0)
[2018-06-05 08:05] LABS: ALB/GLOB RATIO 1.1 (1.1-1.8); ALBUMIN 3.7 g/dL (3.0-4.8); ALT/SGPT 21 U/L (7-56); AST/SGOT 102 U/L (17-59); BLOOD UREA NITROGEN 12 mg/dL (7-21); CALCIUM 8.7 mg/dL (8.4-10.5); GFR NON-AFRICAN AMERICAN > 60
[2018-06-05] MEDS: Insulin Lispro (humaLOG) MEDIUM Coverage SC SCH ×2 (08:08→11:57)
[2018-06-05 09:27] VITALS: BP 132/71
--- NOTE | 2018-06-05 11:23 | PN ---
DATE: 06/05/2018 SUBJECTIVE: The patient is asymptomatic on telemetry. PHYSICAL EXAMINATION: VITAL SIGNS: Blood pressure 127/73, heart rate is in the 60s. NECK: Negative JVD. LUNGS: Without rales. HEART: S1, S2. EXTREMITIES: Without edema. LABORATORY DATA: Hemoglobin is 12.4. Glucose is 115. IMPRESSION: 1. Status post inferior wall myocardial infarction. 2. Status post emergency percutaneous transluminal coronary angioplasty and stent of right coronary artery. 3. Chronic obstructive pulmonary disease. 4. Nicotine addiction. 5. Hypercholesterolemia. 6. Diabetes mellitus. PLAN: Given these findings, the patient's cardiac status is stable. We will do a low-level stress test today. If the patient has no issues related to it, the patient can be discharged today. Followup and instructions have been given to the patient and in detail. Davon Delacruz MD
[2018-06-05 11:28] VITALS: PULSE 86
--- NOTE | 2018-06-05 17:21 | CP.PCM.DIS ---
<FlorianMasood horton - Last Filed: 06/05/18 17:22> Provider - Provider Date of Admission: 06/03/18 11:28 Attending physician: Fam Molina MD Consults: 06/03/18 16:14 Cardiology Consult Routine Comment: Consulting Provider: Davon Delacruz Consulting Physician: Davon Delacruz Reason for Consult: stemi 06/03/18 19:13 Inpatient AEROTRIANGULATION SPECIALIST Core Measures Referral Routine Comment: Physician Instructions: Reason For Exam: EVALUATION Respiratory Therapy Referral Routine Comment: CONGESTION Physician Instructions: Reason For Exam: EVALUATION Transition In Care/Readmission Reduction Routine Comment: Physician Instructions: Reason For Exam: EVALUATION Time Spent in preparation of Discharge (in minutes): 35 Diagnosis - Discharge Diagnosis (1) STEMI (ST elevation myocardial infarction) Status: Resolved Hospital Course - Lab Results Lab Results: Most Recent Lab Values WBC 9.8 10^3/uL (4.5-11.0) 06/05/18 07:25 RBC 5.68 10^6/uL (3.5-6.1) 06/05/18 07:25 Hgb 12.4 g/dL (14.0-18.0) L 06/05/18 07:25 Hct 39.2 % (42.0-52.0) L 06/05/18 07:25 MCV 69.0 fl (80.0-105.0) L 06/05/18 07:25 MCH 21.8 pg (25.0-35.0) L 06/05/18 07:25 MCHC 31.6 g/dl (31.0-37.0) 06/05/18 07:25 RDW 14.5 % (11.5-14.5) 06/05/18 07:25 Plt Count 238 10^3/uL (120.0-450.0) 06/05/18 07:25 Neut % (Auto) 77.3 % (50.0-68.0) H 06/05/18 07:25 Lymph % (Auto) 14.7 % (22.0-35.0) L 06/05/18 07:25 [place] % (Auto) 5.5 % (1.0-6.0) 06/05/18 07:25 Eos % (Auto) 2.1 % (1.5-5.0) 06/05/18 07:25 Baso % (Auto) 0.4 % (0.0-3.0) 06/05/18 07:25 Lymph # (Auto) 1.5 (1.2-3.4) 06/05/18 07:25 [place] # (Auto) 0.5 (0.1-0.6) 06/05/18 07:25 Eos # (Auto) 0.2 (0.0-0.7) 06/05/18 07:25 Baso # (Auto) 0.04 K/mm3 (0.0-2.0) 06/05/18 07:25 Absolute Neuts (auto) 7.60 (1.4-6.5) H 06/05/18 07:25 Retic Count 1.18 % (0.5-1.5) 06/03/18 16:24 PT 12.9 SECONDS (9.4-12.5) H 06/03/18 11:21 INR 1.14 06/03/18 11:21 Sodium 140 mmol/L (132-148) 06/05/18 07:25 Potassium 3.9 mmol/L (3.6-5.0) 06/05/18 07:25 Chloride 106 mmol/L (98-107) 06/05/18 07:25 Carbon Dioxide 28 mmol/L (21-33) 06/05/18 07:25 Anion Gap 9 (10-20) L 06/05/18 07:25 BUN 12 mg/dL (7-21) 06/05/18 07:25 Creatinine 0.8 mg/dl (0.8-1.5) 06/05/18 07:25 Est GFR ( Amer) > 60 06/05/18 07:25 Est GFR (Non-Af Amer) > 60 06/05/18 07:25 POC Glucose (mg/dL) 132 mg/dL (65-110) H 06/05/18 11:04 Random Glucose 115 mg/dL (70-110) H 06/05/18 07:25 Hemoglobin A1c 6.5 % (4.2-6.5) 06/03/18 14:01 Uric Acid 7.3 mg/dL (3.5-8.5) 06/03/18 16:47 Calcium 8.7 mg/dL (8.4-10.5) 06/05/18 07:25 Phosphorus 2.7 mg/dL (2.5-4.5) 06/04/18 06:00 Magnesium 1.9 mg/dL (1.7-2.2) 06/05/18 07:25 Iron 116 ug/dL (45-180) 06/03/18 14:01 TIBC 287 ug/dL (261-462) 06/03/18 14:01 % Saturation 40 % (20-55) 06/03/18 14:01 Ferritin 86.5 ng/mL 06/03/18 14:01 Total Bilirubin 0.8 mg/dL (0.2-1.3) 06/05/18 07:25 AST 102 U/L (17-59) H D 06/05/18 07:25 ALT 21 U/L (7-56) 06/05/18 07:25 Alkaline Phosphatase 59 U/L (38-126) 06/05/18 07:25 Lactate Dehydrogenase 395 U/L (333-699) 06/03/18 11:21 Total Creatine Kinase 140 U/L (35-230) 06/03/18 11:21 Troponin I 0.03 ng/mL 06/03/18 11:21 Total Protein 7.1 g/dL (5.8-8.3) 06/05/18 07:25 Albumin 3.7 g/dL (3.0-4.8) 06/05/18 07:25 Globulin 3.4 gm/dL 06/05/18 07:25 Albumin/Globulin Ratio 1.1 (1.1-1.8) 06/05/18 07:25 Triglycerides 104 mg/dL (35-160) 06/04/18 06:00 Cholesterol 127 mg/dL (130-200) L 06/04/18 06:00 LDL Cholesterol Direct 94 mg/dL (0-129) 06/04/18 06:00 HDL Cholesterol 22 mg/dL (29-60) L 06/04/18 06:00 Urine Color Yellow (YELLOW) 06/03/18 15:24 Urine Appearance Sl cloudy (CLEAR) 06/03/18 15:24 Urine pH 7.5 (4.7-8.0) 06/03/18 15:24 Ur Specific [place] 1.010 (1.005-1.035) 06/03/18 15:24 Urine Protein Negative mg/dL (<30 mg/dL) 06/03/18 15:24 Urine Glucose (UA) Negative mg/dL (NEGATIVE) 06/03/18 15:24 Urine Ketones Negative mg/dL (NEGATIVE) 06/03/18 15:24 Urine Blood Small (NEGATIVE) H 06/03/18 15:24 Urine Nitrate Negative (NEGATIVE) 06/03/18 15:24 Urine Bilirubin Negative (NEGATIVE) 06/03/18 15:24 Urine Urobilinogen 0.2 E.U./dL (<1 E.U./dL) 06/03/18 15:24 Ur Leukocyte Esterase Negative Eder/uL (NEGATIVE) 06/03/18 15:24 Urine RBC 1 - 3 /hpf (0-2) H 06/03/18 15:24 Urine WBC 2 - 5 /hpf (0-6) 06/03/18 15:24 Ur Epithelial Cells 1 - 3 /hpf (0-5) 06/03/18 15:24 Urine Bacteria Few /hpf (NONE) 06/03/18 15:24 - Hospital Course Hospital Course: Masood Florian DO, PGY-1 Hospitalist Discharge Summary for Dr. Molina Mr. Frederick is a 57 year old male, with PMH of AFib, HTN, DM2 who presented to ED for substernal chest pain and was subsequently found to have STEMI. Code heart was promptly called and most HPI obtained from as patient was being wheeled in to the cardiac catheterization suite, and prior chart records. As per , patient was sleeping when the chest pain began and he described it as "flaming hot." He admitted he stopped taking ASA 10 years ago and has not followed with a doctor for many years prior. Cardio (Dr. Davon Delacruz) was consulted for s/p myocardial infarction, s/p emergency PTCA with VENANCIO to RCA. PT was seen and cardiac status was found to be stable. He was monitored overnight in CCU prior to being transferred to [facility]. Follow up exercise stress test was recommended per Dr. Delacruz and showed no defects. He was cleared for discharge by Dr. Delacruz. He will follow up with Dr. Delacruz within 2 weeks. He was given supply of prescriptions prior to discharge. He was instructed on importance of taking daily ASA and plavix now that he has a VENANCIO. Discharge plan was discussed with patient and . All questions were answered. Patient seen, examined, and discharge plan discussed with my attending Dr. Tracy Florian D.O. IM Resident PGY-1 Discharge Exam - Head Exam Head Exam: ATRAUMATIC, NORMOCEPHALIC - Eye Exam Eye Exam: EOMI, Normal appearance, PERRL - ENT Exam ENT Exam: Mucous Membranes Moist - Neck Exam Neck exam: Full Rom, Normal Inspection - Respiratory Exam Respiratory Exam: Clear to PA & Lateral, NORMAL BREATHING PATTERN, UNREMARKABLE. absent: Accessory Muscle Use, Rales, Rhonchi, Wheezes, Respiratory Distress - Cardiovascular Exam Cardiovascular Exam: REGULAR RHYTHM, RRR, +S1, +S2. absent: Diastolic murmur, Gallop, Rubs, Systolic Murmur - GI/Abdominal Exam GI & Abdominal Exam: Normal Bowel Sounds, Soft, Unremarkable - Extremities Exam Extremities exam: full ROM, normal inspection - Back Exam Back exam: NORMAL INSPECTION - Neurological Exam Neurological exam: Alert, Oriented x3 - Psychiatric Exam Psychiatric exam: Normal Affect, Normal Mood - Skin Skin Exam: Dry, Intact, Warm Discharge Plan - Discharge Medications Prescriptions: RX: Allopurinol [Zyloprim] 300 mg PO DAILY #14 tab RX: Aspirin [Aspirin Chewable] 81 mg PO DAILY #14 chew RX: Atorvastatin [Lipitor] 40 mg PO DIN #14 tab RX: Clopidogrel [Plavix] 75 mg PO DAILY #14 tab RX: metFORMIN [glucOPHAGE] 500 mg PO BID #28 tab RX: Metoprolol Tartrate [Lopressor] 25 mg PO BID #28 tab RX: Nicotine 7 mg/24 hr [Nicoderm CQ] 1 patch TD DAILY #14 patch - Follow Up Plan Condition: STABLE Disposition: HOME/ ROUTINE Instructions: Cardiac Stress Test, Heart Healthy Diet, Cardiac Catheterization (DC), Heart Attack (DC), Coronary Stenting (DC), Quitting Smoking, Drugs to Help You Stop Using Tobacco Additional Instructions: * Please follow up with your primary care doctor within one week of discharge for follow up. Please discuss any new medications you have been started on. * Please follow up with Dr. Delacruz (your head cleaning porter) within 2 weeks of disc harge. His contact information has been provided in this paperwork. * You have been started on 3 new medications: 1. Aspirin 81 mg daily 2. Plavix 75 mg daily 3. Lipitor 40 mg daily * Because you had a stent placed in your heart, it is very important you continue taking these medications everyday. * Please be sure to get additional refills from your primary care doctor or Dr. Delacruz your head cleaning porter. * Please stop taking your metoprolol 50 mg daily. Begin taking metoprolol 25 mg twice a day. We will give you a new prescription for this. * Please continue taking your metformin and allopurinol as directed. * If your symptoms return or get worse please return to the nearest ED. Referrals: Davon Delacruz MD [Staff Provider] - <Fam Molina - Last Filed: 06/05/18 17:43> Provider - Provider Date of Admission: 06/03/18 11:28 Attending physician: Fam Molina MD Consults: 06/03/18 16:14 Cardiology Consult Routine Comment: Consulting Provider: Davon Delacruz Consulting Physician: Davon Delacruz Reason for Consult: stemi 06/03/18 19:13 Inpatient AEROTRIANGULATION SPECIALIST Core Measures Referral Routine Comment: Physician Instructions: Reason For Exam: EVALUATION Respiratory Therapy Referral Routine Comment: CONGESTION Physician Instructions: Reason For Exam: EVALUATION Transition In Care/Readmission Reduction Routine Comment: Physician Instructions: Reason For Exam: EVALUATION Hospital Course - Lab Results Lab Results: Most Recent Lab Values WBC 9.8 10^3/uL (4.5-11.0) 06/05/18 07:25 RBC 5.68 10^6/uL (3.5-6.1) 06/05/18 07:25 Hgb 12.4 g/dL (14.0-18.0) L 06/05/18 07:25 Hct 39.2 % (42.0-52.0) L 06/05/18 07:25 MCV 69.0 fl (80.0-105.0) L 06/05/18 07:25 MCH 21.8 pg (25.0-35.0) L 06/05/18 07:25 MCHC 31.6 g/dl (31.0-37.0) 06/05/18 07:25 RDW 14.5 % (11.5-14.5) 06/05/18 07:25 Plt Count 238 10^3/uL (120.0-450.0) 06/05/18 07:25 Neut % (Auto) 77.3 % (50.0-68.0) H 06/05/18 07:25 Lymph % (Auto) 14.7 % (22.0-35.0) L 06/05/18 07:25 [place] % (Auto) 5.5 % (1.0-6.0) 06/05/18 07:25 Eos % (Auto) 2.1 % (1.5-5.0) 06/05/18 07:25 Baso % (Auto) 0.4 % (0.0-3.0) 06/05/18 07:25 Lymph # (Auto) 1.5 (1.2-3.4) 06/05/18 07:25 [place] # (Auto) 0.5 (0.1-0.6) 06/05/18 07:25 Eos # (Auto) 0.2 (0.0-0.7) 06/05/18 07:25 Baso # (Auto) 0.04 K/mm3 (0.0-2.0) 06/05/18 07:25 Absolute Neuts (auto) 7.60 (1.4-6.5) H 06/05/18 07:25 Retic Count 1.18 % (0.5-1.5) 06/03/18 16:24 PT 12.9 SECONDS (9.4-12.5) H 06/03/18 11:21 INR 1.14 06/03/18 11:21 Sodium 140 mmol/L (132-148) 06/05/18 07:25 Potassium 3.9 mmol/L (3.6-5.0) 06/05/18 07:25 Chloride 106 mmol/L (98-107) 06/05/18 07:25 Carbon Dioxide 28 mmol/L (21-33) 06/05/18 07:25 Anion Gap 9 (10-20) L 06/05/18 07:25 BUN 12 mg/dL (7-21) 06/05/18 07:25 Creatinine 0.8 mg/dl (0.8-1.5) 06/05/18 07:25 Est GFR ( Amer) > 60 06/05/18 07:25 Est GFR (Non-Af Amer) > 60 06/05/18 07:25 POC Glucose (mg/dL) 132 mg/dL (65-110) H 06/05/18 11:04 Random Glucose 115 mg/dL (70-110) H 06/05/18 07:25 Hemoglobin A1c 6.5 % (4.2-6.5) 06/03/18 14:01 Uric Acid 7.3 mg/dL (3.5-8.5) 06/03/18 16:47 Calcium 8.7 mg/dL (8.4-10.5) 06/05/18 07:25 Phosphorus 2.7 mg/dL (2.5-4.5) 06/04/18 06:00 Magnesium 1.9 mg/dL (1.7-2.2) 06/05/18 07:25 Iron 116 ug/dL (45-180) 06/03/18 14:01 TIBC 287 ug/dL (261-462) 06/03/18 14:01 % Saturation 40 % (20-55) 06/03/18 14:01 Ferritin 86.5 ng/mL 06/03/18 14:01 Total Bilirubin 0.8 mg/dL (0.2-1.3) 06/05/18 07:25 AST 102 U/L (17-59) H D 06/05/18 07:25 ALT 21 U/L (7-56) 06/05/18 07:25 Alkaline Phosphatase 59 U/L (38-126) 06/05/18 07:25 Lactate Dehydrogenase 395 U/L (333-699) 06/03/18 11:21 Total Creatine Kinase 140 U/L (35-230) 06/03/18 11:21 Troponin I 0.03 ng/mL 06/03/18 11:21 Total Protein 7.1 g/dL (5.8-8.3) 06/05/18 07:25 Albumin 3.7 g/dL (3.0-4.8) 06/05/18 07:25 Globulin 3.4 gm/dL 06/05/18 07:25 Albumin/Globulin Ratio 1.1 (1.1-1.8) 06/05/18 07:25 Triglycerides 104 mg/dL (35-160) 06/04/18 06:00 Cholesterol 127 mg/dL (130-200) L 06/04/18 06:00 LDL Cholesterol Direct 94 mg/dL (0-129) 06/04/18 06:00 HDL Cholesterol 22 mg/dL (29-60) L 06/04/18 06:00 Urine Color Yellow (YELLOW) 06/03/18 15:24 Urine Appearance Sl cloudy (CLEAR) 06/03/18 15:24 Urine pH 7.5 (4.7-8.0) 06/03/18 15:24 Ur Specific [place] 1.010 (1.005-1.035) 06/03/18 15:24 Urine Protein Negative mg/dL (<30 mg/dL) 06/03/18 15:24 Urine Glucose (UA) Negative mg/dL (NEGATIVE) 06/03/18 15:24 Urine Ketones Negative mg/dL (NEGATIVE) 06/03/18 15:24 Urine Blood Small (NEGATIVE) H 06/03/18 15:24 Urine Nitrate Negative (NEGATIVE) 06/03/18 15:24 Urine Bilirubin Negative (NEGATIVE) 06/03/18 15:24 Urine Urobilinogen 0.2 E.U./dL (<1 E.U./dL) 06/03/18 15:24 Ur Leukocyte Esterase Negative Eder/uL (NEGATIVE) 06/03/18 15:24 Urine RBC 1 - 3 /hpf (0-2) H 06/03/18 15:24 Urine WBC 2 - 5 /hpf (0-6) 06/03/18 15:24 Ur Epithelial Cells 1 - 3 /hpf (0-5) 06/03/18 15:24 Urine Bacteria Few /hpf (NONE) 06/03/18 15:24 Attending/Attestation - Attestation I have personally seen and examined this patient.: Yes I have fully participated in the care of the patient.: Yes I have reviewed all pertinent clinical information, including history, physical exam and plan: Yes Notes (Text): 06/05/18 17:40 Medical record note made by the resident after discussion with my direction and input after the patient was personally seen and examined by me. I have reviewed the chart and agree that the record accurately reflects by personal performance of the history, physical exam, data review, and medical decision-making, in the course for the patient. I have also personally directed the plan of care. 57 year old male with past medical history of hypertension, diabetes, chronic smoking and alcohol abuse presented with STEMI. He was seen by cardiology and is s/p cath with RCA VENANCIO stent placement. Cardiac cath reveals preserved left ventricular function. On aspirin, plavix, statin and metoprolol. LFT are improving. He was counselled on smoking cessation and alcohol abuse. Issue of compliance with medication was discussed in detail with him. Patient will follow up with PCP and cardiology. Management plan was discussed in detail with patient. Education was provided
== END 2018-06-05 15:50 | disposition home or self-care (01) | DRG 247 ==
LOC: ED 11:13 → ERH 11:28 → ICU 13:51 → 2RNO 06-04 16:53
PROVIDERS: ADMIT Hospitalist; ATTEND Internal Medicine
PROC: 027034Z Dilation of Coronary Artery, One Artery with Drug-eluting Intraluminal Device, Percutaneous Approach (ICD-10-PCS; principal; 2018-06-03)
PROC: 4A023N7 Measurement of Cardiac Sampling and Pressure, Left Heart, Percutaneous Approach (ICD-10-PCS; 2018-06-03)
PROC: B2151ZZ Fluoroscopy of Left Heart using Low Osmolar Contrast (ICD-10-PCS; 2018-06-03)
PROC: B2111ZZ Fluoroscopy of Multiple Coronary Arteries using Low Osmolar Contrast (ICD-10-PCS; 2018-06-03)
PROC: 3E033PZ Introduction of Platelet Inhibitor into Peripheral Vein, Percutaneous Approach (ICD-10-PCS; 2018-06-03)
DX: I21.19 ST elevation (STEMI) myocardial infarction involving other coronary artery of inferior wall (principal); I25.10 Atherosclerotic heart disease of native coronary artery without angina pectoris; D50.9 Iron deficiency anemia, unspecified; E11.9 Type 2 diabetes mellitus without complications; I48.2 Chronic atrial fibrillation; E78.00 Pure hypercholesterolemia, unspecified; J44.9 Chronic obstructive pulmonary disease, unspecified; F17.200 Nicotine dependence, unspecified, uncomplicated; I10 Essential (primary) hypertension; Z79.02 Long term (current) use of antithrombotics/antiplatelets; Z79.82 Long term (current) use of aspirin; Z82.3 Family history of stroke; Z86.73 Personal history of transient ischemic attack (TIA), and cerebral infarction without residual deficits; Z79.84 Long term (current) use of oral hypoglycemic drugs